=== PATIENT | male | born 1990 | race Caucasian/White ===

== ENCOUNTER 2021-12-17 18:44 | Emergency (ER) | payer SELFPAY ==
[~2021-12-17] VITALS: Ht 167.6 cm; Wt 74.0 kg
[2021-12-17 18:51] VITALS: BP 141/96
[2021-12-17] MEDS ORDERED: TETANUS, DIPHTHERIA, PERTUSSIS VAC/PF 0.5ML (>10YR OLD) IM ONE (19:45)
[2021-12-17] MEDS ORDERED: LIDOCAINE HCL 1% 20ML VIAL (Pyxis) INJ INFIL ONE (19:45)
[2021-12-17] MEDS ORDERED: HYDROCODONE/ACETAMINOPHEN 10/325MG TABLET PO ONE (19:45)
[2021-12-17] MEDS ORDERED: LIDOCAINE HCL 1% 10 MG/ML 10ML VIAL IJ NR (20:15)
== END 2021-12-17 20:56 | disposition home or self-care (01) ==
LOC: ER 18:44
DX: S61.511A Laceration without foreign body of right wrist, initial encounter (principal); W18.30XA Fall on same level, unspecified, initial encounter; Y93.89 Activity, other specified; Y92.89 Other specified places as the place of occurrence of the external cause; Y99.8 Other external cause status
CPT/HCPCS: 12002; 73110; 90471; 90715; 99283; J3490; Z7610

== ENCOUNTER 2021-12-25 11:25 | Emergency (ER) | payer SELFPAY ==
[~2021-12-25] VITALS: Ht 172.7 cm; Wt 77.0 kg
[2021-12-25 11:42] VITALS: BP 126/80
[2021-12-25] MEDS ORDERED: DOXY100T28 PO (12:04)
[2021-12-25] MEDS ORDERED: BO1 TP (12:04)
== END 2021-12-25 12:20 | disposition home or self-care (01) ==
LOC: ER 11:25
DX: S61.511D Laceration without foreign body of right wrist, subsequent encounter (principal); L08.9 Local infection of the skin and subcutaneous tissue, unspecified; X58.XXXD Exposure to other specified factors, subsequent encounter
CPT/HCPCS: 99283